=== PATIENT | male | born 1945 | race Caucasian/White ===

== ENCOUNTER 2017-03-31 21:39 | Inpatient (IN) | payer MEDICARE, BC ==
[~2017-03-31] VITALS: Ht 182.9 cm; Wt 76.2 kg
[2017-03-31] MEDS ORDERED: MULT1TAB11 PO (22:09)
[2017-03-31] MEDS ORDERED: ATOR10TA PO (22:09)
[2017-03-31] MEDS ORDERED: GABA-534 PO (22:09)
[2017-03-31] MEDS ORDERED: DONE10TA44 PO (22:09)
[2017-03-31] MEDS ORDERED: QUET25TA PO (22:09)
[2017-03-31] MEDS ORDERED: ESCI20TA37 PO (22:09)
[2017-03-31] MEDS ORDERED: LOSA25TA13 PO (22:09)
--- NOTE | 2017-03-31 22:12 | NUR ---
Patient walked in to ER with family requesting admission to [facility]. Patient and family state that they were seen at [facility] yesterday and were ultimately directed to this facility. Release of imformation obtained from family and faxed to [facility] for records. Patient is A/O x1, calm and cooperative. To room 3A.
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
--- NOTE | 2017-03-31 22:57 | NUR ---
Pt. admitted to [facility], under care of Dr. Priest Belongs List completed
[2017-03-31] MEDS ORDERED: MAG HYDROX/AL HYDROX/SIMETH 30 ML LIQUID UDC PO PRN (23:15)
[2017-03-31 23:30] VITALS: BP 118/83
[2017-03-31] MEDS: TEMAZEPAM 7.5 MG CAPSULE PO PRN (23:45)
[2017-03-31 23:50] VITALS: BP 118/83
[2017-03-31] MEDS ORDERED: TEMAZEPAM 7.5 MG CAPSULE ONE (23:50)
[2017-03-31] MEDS ORDERED: LORAZEPAM 0.5 MG TABLET ONE (23:52)
[2017-04-01] MEDS: LORAZEPAM 0.5 MG TABLET PO PRN ×4 (00:10→23:25)
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
[2017-04-01] MEDS ORDERED: LORAZEPAM 0.5 MG TABLET ONE (06:44)
[2017-04-01 07:30] VITALS: BP 107/65
[2017-04-01] MEDS: MULTIVITAMINS,THERAPEUTIC TABLET PO SCH (11:08)
--- NOTE | 2017-04-01 11:59 | NUR ---
[facility].RN- Patient confused disoriented and disorganized, frequently wondering everywhere in unit, intrusive with patients, nonsensical in ideas. requires frequent redirection, poor insight and judgement, irritable, pacing up and down unit hallway, AWOL risk pushing on exit doors, patient unable to understand when redirecting, verbally abusive, behavior escalating.
[2017-04-01] MEDS ORDERED: OLANZAPINE 10 MG VIAL IM ONE (12:15)
--- NOTE | 2017-04-01 12:26 | NUR ---
[facility]: Nursing Notes: Chemical Restraint: Patient continue to be restless, impaired judgment, wandering around the unit aimlessly, poor anger management, violent outburst without provocation, constantly trying to AWOL, setting limits, but unable to be redirected, Dr. Priest order: Zyprexa 5mg IM STAT for severe agitated behavior, refusing V/S, continue with treatment plan.
--- NOTE | 2017-04-01 12:56 | NUR ---
[facility]: Nursing Notes: Reassessment of Chemical Restraint: Patient continue to be confused, disorganized, impaired judgment, disoriented, talking incoherently, smearing feces on his cloth, showered and change his cloth, but episodes of disrobing, medications IM was helpful, but not effective, refusing V/S, continue with treatment plan.
[2017-04-01 15:50] VITALS: BP 107/78
[2017-04-01] MEDS ORDERED: OLANZAPINE 10 MG VIAL IM STA (16:16)
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
--- NOTE | 2017-04-01 17:11 | NUR ---
[facility]: Nursing Notes: Reassessment of Chemical Restraint: Patient continue with 1:1 sitter for safety, continue to be confused, restless, disorganized, constantly trying to AWOL, impaired judgment, wandering around the unit aimlessly, unable to follow directions, medication IM was helpful, but not effective, refusing V/S, continue to monitor patient for safety, continue with treatment plan.
[2017-04-01] MEDS: DONEPEZIL 10 MG TABLET PO SCH (20:07)
[2017-04-01] MEDS: DIVALPROEX SPRINKLE 125 MG CAP.SPRINK PO SCH (20:07)
[2017-04-01] MEDS: OLANZAPINE ZYDIS 5 MG TAB.RAPDIS PO SCH (20:07)
[2017-04-01] MEDS: TEMAZEPAM 7.5 MG CAPSULE PO PRN (22:14)
[2017-04-02 07:30] LABS: BASOPHILS % (AUTO) 0.4 % (0.0-2.0); EOSINOPHILS # (AUTO) 0.1 K/uL (0.0-0.7); EOSINOPHILS % (AUTO) 1.7 % (0.0-7.0); HEMATOCRIT 35.8 % (40-50); HEMOGLOBIN 12.3 G/DL (14.0-18.0); LYMPHOCYTES # (AUTO) 1.1 K/UL (0.8-4.8); LYMPHOCYTES % (AUTO) 21.8 % (20.5-51.5); MEAN CORPUSCULAR HGB CONC 34 g/dL (32.0-37.0); MEAN CORPUSCULAR VOLUME 96.1 FL (82.0-92.0); MONOCYTES # (AUTO) 0.6 K/UL (0.1-1.30); MONOCYTES % (AUTO) 11.9 % (0.0-11.0); NEUTROPHILS % (AUTO) 64.2 % (38.5-71.5); PLATELET COUNT (AUTO) 174 K/UL (150-450); RED BLOOD CELL COUNT(AUTO) 3.73 MIL/UL (4.7-6.1); WHITE BLOOD COUNT (AUTO) 4.8 K/UL (4.0-11.2)
[2017-04-02 07:54] LABS: THYROID STIMULATING HORMONE 3.637 mIU/mL (0.358-3.740)
[2017-04-02 07:59] LABS: BILIRUBIN,TOTAL 0.9 mg/dL (0.2-1.0); CREATININE 0.9 mg/dL (0.6-1.3); MAGNESIUM 2.1 mg/dL (1.8-2.4); PHOSPHOROUS 3.9 mg/dL (2.5-4.9); POTASSIUM 3.8 mmol/L (3.5-5.1); TOTAL PROTEIN, SERUM 6.4 g/dL (6.4-8.2)
[2017-04-02 08:00] VITALS: BP 100/62
[2017-04-02] MEDS ORDERED: SERTRALINE HCL 50 MG TABLET PO SCH (09:00)
[2017-04-02] MEDS: MULTIVITAMINS,THERAPEUTIC TABLET PO SCH (10:14)
[2017-04-02] MEDS: OLANZAPINE ZYDIS 5 MG TAB.RAPDIS PO SCH ×2 (10:14→17:39)
[2017-04-02] MEDS: DIVALPROEX SPRINKLE 125 MG CAP.SPRINK PO SCH ×2 (10:14→17:40)
[2017-04-02] MEDS: ACETAMINOPHEN 325 MG TABLET PO PRN (13:56)
[2017-04-02 15:00] VITALS: BP 122/77
[2017-04-02 21:18] VITALS: BP 132/85
[2017-04-02] MEDS: DONEPEZIL 10 MG TABLET PO SCH (21:30)
[2017-04-02] MEDS: LORAZEPAM 0.5 MG TABLET PO PRN (21:30)
[2017-04-02] MEDS: TEMAZEPAM 7.5 MG CAPSULE PO PRN (23:46)
[2017-04-03] MEDS: LORAZEPAM 0.5 MG TABLET PO PRN ×3 (03:31→15:44)
[2017-04-03 07:30] VITALS: BP 135/63
[2017-04-03] MEDS: OLANZAPINE ZYDIS 5 MG TAB.RAPDIS PO SCH ×3 (08:00→16:14)
[2017-04-03] MEDS: MULTIVITAMINS,THERAPEUTIC TABLET PO SCH (09:44)
[2017-04-03] MEDS: DIVALPROEX SPRINKLE 125 MG CAP.SPRINK PO SCH ×3 (09:45→17:53)
--- NOTE | 2017-04-03 10:43 | NUR ---
WOUND CONSULT PATIENT SEEN AND SKIN INTEGRITY ASSESSMENT DONE. PATIENT PRESENTS WITH INTACT SKIN, NO OPEN WOUNDS, SOME DRY SCABS TO BILATERAL ARMS AND DISCOLORATIONS THAT APPEAR T BE AGE RELATED. PATIENT HAS SITTER AT BEDSIDE, PATIENT IS AMBULATORY AND IS INDEPENDENT WITH BED MOBILITY AT THE TIME. CURRENT COLIN IS 19. PATIENT IS CONTINENT PER NURSING STAFF. WILL SEE PRN.
[2017-04-03] MEDS ORDERED: TEMAZEPAM 7.5 MG CAPSULE PO PRN (12:15)
--- NOTE | 2017-04-03 13:12 | NUR ---
Initial discharge instructions: The patient is reported to reside at home with his at [[address] [place] [address]] however his now has filed a TRO and may not want the patient to return home. SS will speak with patient ,family, and MD regarding most appropriate discharge plan. SS will form a safe and proper discharge.
[2017-04-03] MEDS: DONEPEZIL 10 MG TABLET PO SCH (20:15)
[2017-04-03 20:26] VITALS: BP 130/68
[2017-04-03] MEDS: ACETAMINOPHEN 325 MG TABLET PO PRN (21:06)
[2017-04-03] MEDS ORDERED: OLANZAPINE 10 MG VIAL IM ONE (23:09)
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
[2017-04-04] MEDS: TEMAZEPAM 15 MG CAPSULE PO PRN ×2 (01:45→21:18)
--- NOTE | 2017-04-04 01:46 | NUR ---
Pharmacy Note: Pt presented with multiple arm scabs and per metal shaping machine operator, was restless and anxious. At 2105 RN attempted to administer Tylenol 650mg for arm pain and Restoril 15mg for restlessness at 2105. Pt took the Tylenol but spit out the Restoril. RN held the Restoril until Pt was willing to successfully take it at 144 when Pt again became restless. tax professional Aury Sinclair witnessed Pt take the Restoril.
[2017-04-04 07:30] VITALS: BP 113/67
[2017-04-04] MEDS: MULTIVITAMINS,THERAPEUTIC TABLET PO SCH (08:47)
[2017-04-04] MEDS: OLANZAPINE ZYDIS 5 MG TAB.RAPDIS PO SCH ×3 (08:47→17:29)
[2017-04-04] MEDS: DIVALPROEX SPRINKLE 125 MG CAP.SPRINK PO SCH ×3 (08:47→17:30)
[2017-04-04] MEDS: LORAZEPAM 0.5 MG TABLET PO PRN ×2 (10:21→19:07)
[2017-04-04] MEDS: MAGNESIUM HYDROXIDE 30 ML LIQUID UDC PO PRN (15:00)
--- NOTE | 2017-04-04 23:30 | NUR ---
received to care, up in joceline chair, talking to self, appearing distracted by internal stimuli. 1;1 siitter remains at side at all times, for safety. PRN ativan was given by the previous shift, at 190. he remained restless and agitated, for the next few hours. PRN restoril was given at 2117, along with a snack, and fluids. he was assisted to bed, at 2299, after calming down. as of 2329, he appears to be asleep. no distress noted. will continue to monitor closely.
--- NOTE | 2017-04-05 06:00 | NUR ---
slept 7.75 hours, total. continues to sleep. sitter at his side. no distress noted.
[2017-04-05 07:30] VITALS: BP 91/59
[2017-04-05] MEDS: OLANZAPINE ZYDIS 5 MG TAB.RAPDIS PO SCH ×3 (09:52→15:33)
[2017-04-05] MEDS: MULTIVITAMINS,THERAPEUTIC TABLET PO SCH (09:52)
[2017-04-05] MEDS: DIVALPROEX SPRINKLE 125 MG CAP.SPRINK PO SCH ×3 (09:52→15:58)
[2017-04-05] MEDS: LORAZEPAM 0.5 MG TABLET PO PRN (12:57)
[2017-04-05 16:00] VITALS: BP 122/50
[2017-04-05] MEDS: LORAZEPAM 1 MG TABLET PO PRN (16:49)
[2017-04-05] MEDS ORDERED: LORAZEPAM 0.5 MG TABLET PO PRN (19:15)
[2017-04-05] MEDS: DONEPEZIL 10 MG TABLET PO SCH (19:58)
[2017-04-05] MEDS ORDERED: DIVALPROEX SPRINKLE 125 MG CAP.SPRINK PO ONE (20:00)
[2017-04-05 20:05] VITALS: BP 112/62
[2017-04-05] MEDS: TEMAZEPAM 15 MG CAPSULE PO PRN (22:01)
--- NOTE | 2017-04-05 23:00 | NUR ---
received to care, up in joceline chair, appearing restless, and distracted by internal stimuli. 1;1 siitter remains at side at all times, for safety. PRN restoril was given at 2200, along with a snack, and fluids. he was assisted to bed, at 0, and, as of 2299, he appears to be asleep. no distress noted. will continue to monitor closely.
--- NOTE | 2017-04-06 06:00 | NUR ---
slept 8.75 hours, total. assisted with AM care, including shower. remains calm and cooperative. no aggressive behavior noted. currently back in bed, sleeping. sitter remains at side. no distress noted.
[2017-04-06 07:30] VITALS: BP 112/54
[2017-04-06] MEDS: LORAZEPAM 1 MG TABLET PO PRN ×2 (07:51→12:03)
[2017-04-06] MEDS: OLANZAPINE ZYDIS 5 MG TAB.RAPDIS PO SCH ×3 (08:34→16:14)
[2017-04-06] MEDS: MULTIVITAMINS,THERAPEUTIC TABLET PO SCH (08:34)
[2017-04-06] MEDS: DIVALPROEX SPRINKLE 125 MG CAP.SPRINK PO SCH ×3 (08:34→16:14)
[2017-04-06] MEDS: GABAPENTIN 300 MG CAPSULE PO SCH ×3 (08:34→16:14)
[2017-04-06] MEDS: ACETAMINOPHEN 325 MG TABLET PO PRN (16:14)
[2017-04-06 20:00] VITALS: BP 98/57
[2017-04-06] MEDS: DONEPEZIL 10 MG TABLET PO SCH (21:00)
--- NOTE | 2017-04-06 21:30 | NUR ---
pt received in bed sleeping , no acute distress noted. Remains confused and disorganized. Pt not given bedtime medication due to pt being sleep. No acute distress noted. 1:1 sitter at bedside.
[2017-04-07 07:30] VITALS: BP 126/92
[2017-04-07] MEDS: MULTIVITAMINS,THERAPEUTIC TABLET PO SCH (08:10)
[2017-04-07] MEDS: GABAPENTIN 300 MG CAPSULE PO SCH ×3 (08:11→17:07)
[2017-04-07] MEDS: ACETAMINOPHEN 325 MG TABLET PO PRN ×2 (08:11→17:08)
[2017-04-07] MEDS: DIVALPROEX SPRINKLE 125 MG CAP.SPRINK PO SCH ×3 (08:11→17:08)
[2017-04-07] MEDS: CLONAZEPAM 0.5 MG TABLET PO SCH ×3 (08:11→17:07)
[2017-04-07 15:39] VITALS: BP 129/73
[2017-04-07 20:00] VITALS: BP 110/77
[2017-04-07] MEDS: DONEPEZIL 10 MG TABLET PO SCH (20:41)
[2017-04-07] MEDS: LORAZEPAM 1 MG TABLET PO PRN (20:42)
--- NOTE | 2017-04-07 21:31 | NUR ---
T RECEIVED IN HIS ROOM SITTING UP IN A MAIRA CHAIR WITH 1:1 AT BED SIDE, CONFUSED AND DISORIENTED,REMAINS UNPREDICTABLE, TOOK MEDS ORDERED, WILL CONTINUE TO MONITOR CLOSELY.
[2017-04-08] MEDS: ACETAMINOPHEN 325 MG TABLET PO PRN (02:53)
[2017-04-08] MEDS: LORAZEPAM 1 MG TABLET PO PRN (02:53)
[2017-04-08 07:30] VITALS: BP 104/63
[2017-04-08] MEDS: CLONAZEPAM 0.5 MG TABLET PO SCH ×3 (08:42→17:04)
[2017-04-08] MEDS: GABAPENTIN 300 MG CAPSULE PO SCH ×3 (08:42→17:04)
[2017-04-08] MEDS: MULTIVITAMINS,THERAPEUTIC TABLET PO SCH (08:42)
[2017-04-08] MEDS: DIVALPROEX SPRINKLE 125 MG CAP.SPRINK PO SCH ×3 (08:44→17:04)
--- NOTE | 2017-04-08 12:13 | NUR ---
[facility]/RN- Dr Priest here to see patient discussed patient , poor sleep pattern. verbal orders received, patient to receive Restoril as routine med at , repeated order back to MD.
[2017-04-08 15:22] VITALS: BP 108/72
[2017-04-08 20:48] VITALS: BP 134/76
[2017-04-08] MEDS: TEMAZEPAM 7.5 MG CAPSULE PO SCH (20:58)
[2017-04-08] MEDS: DONEPEZIL 10 MG TABLET PO SCH (20:58)
[2017-04-08] MEDS ORDERED: TEMAZEPAM 15 MG CAPSULE PO SCH ×2 (21:00)
[2017-04-09] MEDS: LORAZEPAM 1 MG TABLET PO PRN ×2 (03:10→23:07)
--- NOTE | 2017-04-09 03:25 | NUR ---
Pharmacy Note: Pt experiencing restlessness and attempting to get out of bed. Ativan 1mg administered at 0310 with good effect.
[2017-04-09 07:24] LABS: BASOPHILS % (AUTO) 0.5 % (0.0-2.0); EOSINOPHILS # (AUTO) 0.1 K/uL (0.0-0.7); EOSINOPHILS % (AUTO) 1.2 % (0.0-7.0); HEMATOCRIT 42.2 % (40-50); HEMOGLOBIN 14.3 G/DL (14.0-18.0); LYMPHOCYTES # (AUTO) 1.1 K/UL (0.8-4.8); LYMPHOCYTES % (AUTO) 15.6 % (20.5-51.5); MEAN CORPUSCULAR HEMOGLOBIN 32.8 UUG (27.0-31.0); MEAN CORPUSCULAR HGB CONC 34 g/dL (32.0-37.0); MONOCYTES # (AUTO) 0.5 K/UL (0.1-1.30); MONOCYTES % (AUTO) 7.7 % (0.0-11.0); NEUTROPHILS # (AUTO) 5.1 K/UL (1.8-8.9); PLATELET COUNT (AUTO) 181 K/UL (150-450); RED BLOOD CELL COUNT(AUTO) 4.35 MIL/UL (4.7-6.1); WHITE BLOOD COUNT (AUTO) 6.8 K/UL (4.0-11.2)
[2017-04-09 07:30] VITALS: BP 117/69
[2017-04-09 08:06] LABS: BILIRUBIN,TOTAL 0.6 mg/dL (0.2-1.0); CREATININE 0.8 mg/dL (0.6-1.3); MAGNESIUM 2.3 mg/dL (1.8-2.4); PHOSPHOROUS 3.4 mg/dL (2.5-4.9); POTASSIUM 4.3 mmol/L (3.5-5.1); TOTAL PROTEIN, SERUM 7.2 g/dL (6.4-8.2)
[2017-04-09] MEDS: CLONAZEPAM 0.5 MG TABLET PO SCH ×3 (08:27→17:28)
[2017-04-09] MEDS: MULTIVITAMINS,THERAPEUTIC TABLET PO SCH (08:27)
[2017-04-09] MEDS: GABAPENTIN 300 MG CAPSULE PO SCH ×3 (08:27→17:28)
[2017-04-09] MEDS: DIVALPROEX SPRINKLE 125 MG CAP.SPRINK PO SCH ×3 (08:27→17:29)
[2017-04-09] MEDS: MAGNESIUM HYDROXIDE 30 ML LIQUID UDC PO PRN (10:07)
[2017-04-09 16:00] VITALS: BP 113/68
[2017-04-09] MEDS: DONEPEZIL 10 MG TABLET PO SCH (20:22)
[2017-04-09] MEDS: TEMAZEPAM 7.5 MG CAPSULE PO SCH (20:23)
[2017-04-09] MEDS: DOCUSATE SODIUM 100 MG/10 ML LIQUID UDC PO SCH (20:23)
[2017-04-09 21:56] VITALS: BP 118/64
--- NOTE | 2017-04-09 21:59 | NUR ---
PATIENT RECEIVED IN A MAIRA CHAIR SECURED WITH A 1:1 SITTER FOR SAFETY WITHIN ARMS REACH. PATIENT CONFUSED, DISORIENTED, ANXIOUS, AND RAMBLING. PATIENT IS UNPREDICTABLE. PATIENT COMPLAINT WITH MEDICATION. NO FACIAL GRIMACING NOTED WILL CONTINUE TO MONITOR. NO AGGRESSIVE OR COMBATIVE BEHAVIOR NOTED, WILL CONTINUE TO MONITOR AND REDIRECT NEEDED.
--- NOTE | 2017-04-10 09:10 | NUR ---
Hoop Maker Machine The patient was assessed by Erica, Director of Resident Care at [facility] [[address], [place] [address] ] yesterday (04/09/17) at 9:00 am.
[2017-04-10] MEDS: CLONAZEPAM 0.5 MG TABLET PO SCH ×2 (09:36→11:37)
[2017-04-10] MEDS: MULTIVITAMINS,THERAPEUTIC TABLET PO SCH (09:36)
[2017-04-10] MEDS: GABAPENTIN 300 MG CAPSULE PO SCH ×2 (09:36→11:37)
[2017-04-10] MEDS: DIVALPROEX SPRINKLE 125 MG CAP.SPRINK PO SCH ×2 (09:36→11:37)
[2017-04-10] MEDS: DOCUSATE SODIUM 100 MG/10 ML LIQUID UDC PO SCH (09:36)
--- NOTE | 2017-04-10 10:10 | NUR ---
DC Note: The patient will be discharged today to [facility] [[address], [place] [address] ] and will be picked up via private car at 11:00 am by his son William Johns and his Gail Johns. Spoke with the patient's son William Johns and he is aware and agreeable with the discharge plan. JAGDISH spoke with Erica, Director of Resident Care at the facility who stated that they will be accepting the patient today. The patient will follow-up with neurologist Dr. Faviola Garcia and his investment counselor Dr. Jamar Hoffman . The patient prescriptions must be called into [facility] .
--- NOTE | 2017-04-10 11:47 | NUR ---
PT IS A/O X 1. PT IS COMPLIANT WITH MEDICATIONS AND CARE, ALLOWS CARE. PT IS BEING DISCHARGED AND BEING PICKED UP BY HIS SON MAJO AMARO. DISCHARGE INSTRUCTIONS ARE GIVEN TO THE SON. PRESCRIPTION FOR MEDICATIONS ARE GIVEN. ALL BELONGINGS RETURNED. THE SON VERBALIZES UNDERSTANDING OF DISCHARGE TEACHING.
--- NOTE | 2017-04-10 12:30 | NUR ---
CALLED IN MEDICAL RX TO KIARA AT [facility] ([phone]) PER SONS REQUEST.
== END 2017-04-10 11:45 | DRG 885 ==
LOC: ER 21:40 → GPS 23:09
PROVIDERS: ADMIT Psychiatry & Neurology Psychosomatic Medicine; ATTEND Family Medicine
DX: F23 Brief psychotic disorder (principal); F02.81 Dementia in other diseases classified elsewhere, unspecified severity, with behavioral disturbance; G31.83 Neurocognitive disorder with Lewy bodies; E78.5 Hyperlipidemia, unspecified; Z85.46 Personal history of malignant neoplasm of prostate; Z79.899 Other long term (current) drug therapy; Z91.83 Wandering in diseases classified elsewhere; E11.42 Type 2 diabetes mellitus with diabetic polyneuropathy; I10 Essential (primary) hypertension; D53.9 Nutritional anemia, unspecified; E88.09 Other disorders of plasma-protein metabolism, not elsewhere classified
CPT/HCPCS: 36415; 80164; 83735; 84100; 84443; 85025; 97161; J2358